=== PATIENT | female | born 1965 | race Caucasian/White ===

== ENCOUNTER → 2019-06-22 | Outpatient (CLI) | payer OTHER ==
[~2019-06-22] MED LIST: ERGO400 PO; ZOLP5 PO
[2019-06-23 16:07] LABS: HPV 16 Negative (Negative); HPV 18 Negative (Negative); HPV OTHER HR TYPES Negative (Negative)
== END ==
LOC: LAB SHORT 09:13 → LAB 09:13
PROVIDERS: Nurse Practitioner Family
DX: Z12.4 Encounter for screening for malignant neoplasm of cervix (principal)
CPT/HCPCS: 87070; 87205; 87624; G0145

== ENCOUNTER → 2022-04-18 | Outpatient (CLI) | payer OTHER | END | disposition home or self-care (01) | LOC: LAB 11:50 → LAB SHORT 11:50 | DX: J02.9 Acute pharyngitis, unspecified (principal) | CPT/HCPCS: 87081 ==